=== PATIENT | male | born 1995 | race Asian ===

== ENCOUNTER 2020-04-24 19:35 | Emergency (ER) | payer OTHER ==
[~2020-04-24] VITALS: Ht 177.8 cm; Wt 70.7 kg
--- NOTE | 2020-04-24 19:43 | NUR ---
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
[2020-04-24 19:44] VITALS: BP 153/92
== END 2020-04-24 21:13 ==
LOC: ED 19:35
DX: B19.10 Unspecified viral hepatitis B without hepatic coma (principal); B19.20 Unspecified viral hepatitis C without hepatic coma; Z20.6 Contact with and (suspected) exposure to human immunodeficiency virus [HIV]; J45.909 Unspecified asthma, uncomplicated
CPT/HCPCS: 36415; 86705; 86706; 86803; 87340; 87806; 99283; G0475

== ENCOUNTER 2020-06-28 08:55 | Outpatient (CLI) | payer OTHER | END 2020-06-28 23:59 | disposition home or self-care (01) | LOC: RAD 08:55 | PROVIDERS: ATTEND Internal Medicine Hematology & Oncology | DX: S67.92XA Crushing injury of unspecified part(s) of left wrist, hand and fingers, initial encounter (principal); X58.XXXA Exposure to other specified factors, initial encounter; Y93.89 Activity, other specified; Y92.89 Other specified places as the place of occurrence of the external cause; Y99.8 Other external cause status ==

== ENCOUNTER 2020-12-01 11:09 | Emergency (ER) | payer OTHER ==
[~2020-12-01] VITALS: Ht 172.7 cm; Wt 70.7 kg
--- NOTE | 2020-12-01 11:38 | NUR ---
PT AMBULATORY TO ROOM 36 W/ C/O FEVER AND "FEELING CRAPPY" 12/01/20. SPLITTING LOMAS, CHILLS, HOT FLASHES, FEELING FATIGUED, RINGING IN EARS. PT STATES HE RECEIVED BOTH COVID VACCINES IN NOV. FULL ROM TO NECK. [facility].
--- NOTE | 2020-12-01 12:10 | NUR ---
PT RESTING ON GURNEY. NADN. SAVAGE.
[2020-12-01 12:51] LABS: ALBUMIN 3.6 g/dL (3.4-5.0); ANION GAP 6 mmol/L (5-15); BASOPHILS % (AUTO) 0 % (0-1); CALCIUM 8.1 mg/dL (8.5-10.1); CHLORIDE 113 mmol/L (98-107); EOSINOPHILS % (AUTO) 0 % (1-7); LYMPHOCYTES % (AUTO) 11 % (22-44); MD NO; MEAN CORPUSCULAR HEMOGLOBIN 28.6 pg (27.5-34.5); MEAN CORPUSCULAR HGB CONC 34.5 g/dL (33.2-36.2); MEAN PLATELET VOLUME 8.3 fL (7.4-10.4); MONOCYTES % (AUTO) 7 % (2-9); NEUTROPHILS % (AUTO) 83 % (42-75); PLATELET COUNT 184 x10^3/uL (130-400); RED BLOOD COUNT 5.39 x10^6/uL (4.38-5.82); RED CELL DISTRIBUTION WIDTH 12.5 % (9.4-14.8)
[2020-12-01 12:55] LABS: MICROSCOPIC NOT IND
--- NOTE | 2020-12-01 13:16 | NUR ---
PT CHART REVIEWED AND PLACED FOR RECHECK.
[2020-12-01 14:04] VITALS: BP 116/82
--- NOTE | 2020-12-01 14:04 | NUR ---
PT RESTING ON GURNEY. NADN. SAVAGE.
== END 2020-12-01 14:17 | disposition home or self-care (01) ==
LOC: ED 13:23
DX: B34.9 Viral infection, unspecified (principal); R50.9 Fever, unspecified; R51.9 Headache, unspecified; J45.909 Unspecified asthma, uncomplicated
CPT/HCPCS: 36415; 71045; 80048; 81003; 82040; 83605; 84145; 85025; 99285